=== PATIENT | female | born 2000 | race Asian ===

== ENCOUNTER 2022-07-29 18:36 | Emergency (ER) | payer BC ==
[2022-07-29] MEDS ORDERED: Ketorolac Tromethamine 30 MG/ML VIAL ONE (19:05)
[2022-07-29] MEDS ORDERED: Bacitracin 1 PK ONE (20:02)
== END 2022-07-29 20:13 | disposition home or self-care (01) ==
LOC: CSHERS 18:36
DX: S52.501A Unspecified fracture of the lower end of right radius, initial encounter for closed fracture (principal); S52.601A Unspecified fracture of lower end of right ulna, initial encounter for closed fracture; W05.1XXA Fall from non-moving nonmotorized scooter, initial encounter
CPT/HCPCS: 29105; 96372; J1885